=== PATIENT | male | born 1980 | race Two or more races ===

== ENCOUNTER 2025-01-31 06:25 | Day surgery (SDC) | payer OTHER, SELFPAY | END 2025-01-31 12:54 | disposition home or self-care (01) | LOC: GI 06:25 | PROVIDERS: ATTENDING PHYSICIAN Surgery | DX: Z12.11 Encounter for screening for malignant neoplasm of colon (principal); K62.5 Hemorrhage of anus and rectum; K64.4 Residual hemorrhoidal skin tags; K57.30 Diverticulosis of large intestine without perforation or abscess without bleeding; K64.8 Other hemorrhoids | CPT/HCPCS: G0121 ==

== ENCOUNTER → 2025-05-19 06:21 | Outpatient (REF) | payer OTHER, SELFPAY | LOC: RAD 06:21 | PROVIDERS: ATTENDING PHYSICIAN Family Medicine | DX: R22.9 Localized swelling, mass and lump, unspecified (principal) | CPT/HCPCS: 76870; 76882; 93976 ==

== ENCOUNTER → 2025-09-14 07:43 | Outpatient (REF) | payer OTHER, SELFPAY | LOC: MRI 3T 07:43 | PROVIDERS: ATTENDING PHYSICIAN Surgery; FAMILY PHYSICIAN Family Medicine | DX: K60.329 Anal fistula, complex, unspecified (principal) | CPT/HCPCS: 72197; A9575 ==